=== PATIENT | female | born 1965 | race African-American/Black ===

== ENCOUNTER 2019-03-11 15:20 | Emergency (ER) | payer BC, MEDICARE, OTHER ==
[~2019-03-11] VITALS: Ht 160 cm; Wt 133.2 kg
[~2019-03-11 15:20] MED LIST: ALBUTEROL0.09 MG/A1 IH; ALDACTONE50 MG PO; ANOTHER BP MED; ATENOLOL25 MG PO; ATROVENTNS0.03% NS; CATAPRES-TTS 30.3 MG TD; CATAPRES0.3 MG PO; CLARITIN 1010 MG/TAB PO; COMBIVENT INH14.7 GM IH; COZAAR 50MG50 MG/TAB PO; DILAUDID 2MG TAB2 MG PO; DIOVAN; DIOVAN HCT PO; DIOVAN/HCT 12.51 TA1 PO; FUROSEMIDE; GLUCOPHAGE PO; GLUCOPHAGE500 MG/TAB PO; IPRATROPIUM BROM3 M1 IH; IRON; LASIX 40MG TABL40 MG PO; LORTAB 5/500 501 TAB PO; LORTAB 7.5/5001 TAB PO; MICRO-K 1010 MEQ PO; MICRO-K10 MEQ PO; NEXIUM40 MG PO; NORCO 325 MG-51 TAB PO; NORMODYNE200 MG PO; NORVASC 10MG10 MG PO; NORVASC10 MG PO; PREDNISONE10 MG PO; PREDNISONE20 MG PO; PRIL40 PO; PROAIR HFA0.09 MG/AC IH; RT ADVAIR 228 DISKUS IH; RT ADVAIR 528 DISKUS IH; RT SPIRIVA18 MCG IH; SINGULAIR 110 MG/TAB PO; TENORMIN100 MG PO; TESSALON PERLE200 MG PO; TRANDATE 200MG200 MG PO; TUSSIN; ULTRAM 50MG TAB50 MG PO; ULTRAM50 MG PO; VENTOLIN0.09 MG IH; ZITHROMAX TRI-500 MG PO
[2019-03-11 15:33] VITALS: BP 141/93; TEMP 97.6
[2019-03-11] MEDS ORDERED: FLEXERIL 1010 MG/TAB PO (15:58)
[2019-03-11] MEDS ORDERED: PREDNISONE20 MG PO (15:58)
[2019-03-11] MEDS ORDERED: LIPITOR 40MG TA40 MG PO (16:22)
[2019-03-11] MEDS ORDERED: HCTZ 25MG TAB25 MG PO (16:23)
[2019-03-11] MEDS ORDERED: LASIX 20MG TABL20 MG PO (16:24)
[2019-03-11] MEDS ORDERED: NORVASC 10MG10 MG PO (16:26)
[2019-03-11] MEDS ORDERED: APRESOLINE 25MG25 MG PO (16:26)
[2019-03-11] MEDS ORDERED: MULTI VITAMINS1 TAB PO (16:27)
[2019-03-11 16:30] VITALS: PULSE 69
== END 2019-03-11 16:42 | disposition home or self-care (01) ==
LOC: COL.ER 15:20
DX: M54.5 Low back pain (principal); J45.909 Unspecified asthma, uncomplicated; I10 Essential (primary) hypertension; Z90.710 Acquired absence of both cervix and uterus; Z98.84 Bariatric surgery status; Z79.51 Long term (current) use of inhaled steroids
CPT/HCPCS: J7512

== ENCOUNTER → 2019-03-16 | Outpatient (CLI) | payer BC, MEDICARE ==
[~2019-03-16] MED LIST changes: +APRESOLINE 25MG25 MG PO; +FLEXERIL 1010 MG/TAB PO; +HCTZ 25MG TAB25 MG PO; +LASIX 20MG TABL20 MG PO; +LIPITOR 40MG TA40 MG PO; +MULTI VITAMINS1 TAB PO
== END ==
LOC: COL.RAD 08:28
DX: N18.3 Chronic kidney disease, stage 3 (moderate) (principal); R10.9 Unspecified abdominal pain

== ENCOUNTER 2019-07-21 13:44 | Outpatient (RCR) | payer OTHER | END 2019-10-12 | disposition home or self-care (01) | LOC: WSOH | DX: S29.012A Strain of muscle and tendon of back wall of thorax, initial encounter (principal); I10 Essential (primary) hypertension; J45.909 Unspecified asthma, uncomplicated; M75.52 Bursitis of left shoulder; Z98.84 Bariatric surgery status; Z90.710 Acquired absence of both cervix and uterus; Y99.0 Civilian activity done for income or pay ==

== ENCOUNTER → 2020-05-10 | Outpatient (CLI) | payer OTHER | LOC: MC.RAD 09:45 | DX: Z12.31 Encounter for screening mammogram for malignant neoplasm of breast (principal) ==

== ENCOUNTER 2021-09-15 18:06 | Inpatient (IN) | payer BC, MEDICARE ==
[~2021-09-15] VITALS: Ht 160 cm; Wt 137.8 kg
[2021-09-15] VITALS (78 sets, daily range): BP systolic 18–153; BP diastolic 68–77; PULSE 108; TEMP 99.1–99.7; O2SAT 92–99
[2021-09-15 19:35] LABS: GRAN # 3.5 K/mm3 (1.4-6.5); GRAN % 82.2 % (42.2-75.2); HEMOGLOBIN 11.4 g/dl (12.5-16.0); LYMPH # 0.5 K/mm3 (1.2-3.4); LYMPH % 10.9 % (20.0-51.0); MEAN CELL VOLUME 83 fl (80.0-100.0); MEAN CORPUSCULAR HEMOGLOBIN 27 pg (27.0-31.0); MEAN CORPUSCULAR HGB CONC 32 g/dl (33.0-37.0); MEAN PLATELET VOLUME 9.4 fl (7.4-10.4); MONO # 0.3 K/mm3 (0.1-0.6); MONO % 6.2 % (1.7-9.3); PLATELET COUNT 253 K/mm3 (130-400); RED BLOOD COUNT 4.29 M/mm3 (4.10-5.30); REDCELL DISTRIBUTION WIDTH-CV 14.6 % (11.5-14.5)
[2021-09-15 19:36] LABS: HEMATOCRIT 35.5 % (37.0-47.0)
[2021-09-15 19:48] LABS: ALBUMIN 3.4 gm/dL (3.5-5.0); BILIRUBIN,TOTAL 0.3 mg/dL (0.2-1.2); C-REACTIVE PROTEIN 2.68 mg/dL (0.00-0.50); CALCIUM 8.5 mg/dL (8.4-10.2); CREATININE, serum 3.21 mg/dL (0.57-1.11); POTASSIUM 5.7 mmol/L (3.5-4.5); TOTAL PROTEIN 7.8 gm/dL (6.2-8.1)
--- NOTE | 2021-09-15 20:58 | NUR ---
Received report from YAMILET Radford RN.
--- NOTE | 2021-09-15 21:15 | NUR ---
Patient arrives to ICU room 1 via ED stretcher. Patient is alert and oriented and is able to ambulate independently to toilet and then to bed. Patient arrives receiving 10L oxygen via oxymask satting 95%. Patient becomes tachypneic and short of breath with activity but quickly recovers with rest. Initial BP of 180/77, and 165/85 at 15 minute recheck. Oral temperature of 99.7 orally. She arrives with one 20G peripheral IV to the [facility] that is saline locked. She denies any pain or discomfort. States she has a dry, hacking cough. Holly, hospitalist, aware of patient's arrival.
[2021-09-15] MEDS ORDERED: FARXIGA10 PO (21:55)
--- NOTE | 2021-09-15 22:00 | NUR ---
Patient's belongings include streeth clothes and shoes; a cellphone and radio broadcaster; her purse and wallet with $3 smith; a single gold wedding band; and a pair of glasses. She denies having any dentures, partials, plates, or hearing aids. Denies using assistive devices to ambulate. Belongings at bedside per patient's request.
[2021-09-15 22:58] LABS: ARTERIAL BLD GAS O2 SATURATION 97.6 % (92-100); ARTERIAL BLD GAS TCO2 CT 16.5; ARTERIAL BLOOD GAS BASE EXCESS -7.9 (-2-2); ARTERIAL BLOOD GAS HCO3 15.7 meq/L (22-26)
[2021-09-15 23:35] LABS: COLLECTION METHOD CLEAN CATCH
[2021-09-15 23:41] LABS: PH 5 (5-8); SQUAMOUS EPITHELIAL 0-2 /hpf; URINE APPEARANCE Clear; URINE BACTERIA Rare /hpf; URINE BILIRUBIN Negative (NEGATIVE); URINE BLOOD Negative (NEGATIVE); URINE COLOR Yellow; URINE GLUCOSE 2+ (NEGATIVE); URINE KETONE Negative (NEGATIVE); URINE LEUKOCYTE ESTERASE Trace (NEGATIVE); URINE NITRATE Negative (NEGATIVE); URINE PROTEIN(semi-quant) 1+ (NEGATIVE); URINE RBC 0-2 /hpf; URINE UROBILINOGEN Negative (NEGATIVE)
[2021-09-16] VITALS (720 sets, daily range): BP systolic 137–155; BP diastolic 68–82; PULSE 68–76; TEMP 97.5–99; O2SAT 83–99
[2021-09-16 03:24] LABS: GRAN # 2.9 K/mm3 (1.4-6.5); GRAN % 84.9 % (42.2-75.2); HEMOGLOBIN 10.6 g/dl (12.5-16.0); LYMPH # 0.4 K/mm3 (1.2-3.4); LYMPH % 11.6 % (20.0-51.0); MEAN CELL VOLUME 83 fl (80.0-100.0); MEAN CORPUSCULAR HEMOGLOBIN 27 pg (27.0-31.0); MEAN CORPUSCULAR HGB CONC 32 g/dl (33.0-37.0); MEAN PLATELET VOLUME 9.8 fl (7.4-10.4); MONO # 0.1 K/mm3 (0.1-0.6); MONO % 2.9 % (1.7-9.3); PLATELET COUNT 241 K/mm3 (130-400); REDCELL DISTRIBUTION WIDTH-CV 14.5 % (11.5-14.5)
[2021-09-16 03:25] LABS: HEMATOCRIT 33.2 % (37.0-47.0)
[2021-09-16 03:31] LABS: INR 1.2 (0.8-3.0); PROTHROMBIN TIME 12.8 SECONDS (9.7-12.8)
[2021-09-16 03:46] LABS: CALCIUM 8.9 mg/dL (8.4-10.2); CREATININE, serum 2.89 mg/dL (0.57-1.11); POTASSIUM 5.1 mmol/L (3.5-4.5)
--- NOTE | 2021-09-16 07:00 | NUR ---
PT RESTING IN BED. VSS. PT HAS NS RUNNING. WILL CONTINUE TO MONTIOR.
--- NOTE | 2021-09-16 08:38 | NUR ---
PT DOWN TO MRI/MRA AT THIS TIME
--- NOTE | 2021-09-16 08:48 | NUR ---
ANGEL KENNEDY WITH NOTIFIED OF CONSULT. NOTIFIED OF CONSULT.
--- NOTE | 2021-09-16 10:59 | NUR ---
head screen worker called patient due to Covid + status. Patient reports that she lives in a duplex in [place]. States her and her live on one side and her mother and grandchildren live in the other unit. Patient reports that her mother is caring for the children currently. Patient reports that she is fully independent with her ADL's and she does not use any assisting devices to help her ambulate and no O2 needs. PCP is Dr. Augustin at [facility] and she utilizes [facility] in [place] for perscriptions with no cost difficulty.Patient reports that she does have a DPOA-HC established and that [facility] has a copy of it. Contact made with the SW at [facility] and she is going to fax a copy.
--- NOTE | 2021-09-16 19:14 | NUR ---
Received report from TRAVIS Pedroza.
[2021-09-17] VITALS (705 sets, daily range): BP systolic 130–146; BP diastolic 65–72; PULSE 67–73; TEMP 96.9–98; O2SAT 81–98
[2021-09-17 06:29] LABS: HEMATOCRIT 35.4 % (37.0-47.0); HEMOGLOBIN 11.2 g/dl (12.5-16.0); MEAN CELL VOLUME 83 fl (80.0-100.0); MEAN CORPUSCULAR HEMOGLOBIN 26 pg (27.0-31.0); MEAN CORPUSCULAR HGB CONC 32 g/dl (33.0-37.0); MEAN PLATELET VOLUME 9.3 fl (7.4-10.4); PLATELET COUNT 339 K/mm3 (130-400); RED BLOOD COUNT 4.27 M/mm3 (4.10-5.30); REDCELL DISTRIBUTION WIDTH-CV 14.7 % (11.5-14.5)
[2021-09-17 06:43] LABS: C-REACTIVE PROTEIN 2.82 mg/dL (0.00-0.50); CALCIUM 9.5 mg/dL (8.4-10.2); CREATININE, serum 2.65 mg/dL (0.57-1.11); POTASSIUM 4.8 mmol/L (3.5-4.5)
--- NOTE | 2021-09-17 10:14 | NUR ---
REPORT RECEIVED FROM TRAVIS PERRIN; PATIENT RESTING COMFORTABLY IN BED AND VITALS ARE ALL WITHIN NORMAL RANGE AT THIS TIME.
--- NOTE | 2021-09-17 10:18 | NUR ---
PATIENT IS A LITTLE ANXIOUS AND NEEDS FREQUENT REASSURANCE TO HER WELL-BEING. VERY ACTIVE PARTICIPANT IN CARE AND IS VERY INTERESTED IN LEARNING ABOUT TESTS, RESULTS AND TREATMENTS.
[2021-09-18] VITALS (663 sets, daily range): BP systolic 132–148; BP diastolic 65–75; PULSE 64–73; TEMP 97.1–98; O2SAT 78–96
[2021-09-18 06:13] LABS: CALCIUM 9.5 mg/dL (8.4-10.2); CREATININE, serum 2.85 mg/dL (0.57-1.11)
--- NOTE | 2021-09-18 09:14 | NUR ---
RECEIVED REPORT FROM TRAVIS CHADWICK. OVERNIGHT PATIENT DID NOT SLEEP WELL AND WAS EXPERIENCING A LOT OF ANXIETY; CURRENTLY SHE IS RESTING IN BED ON HER PHONE.
--- NOTE | 2021-09-18 16:45 | NUR ---
Copy of the patient's DPOA-HC received and placed in the patient's chart.
[2021-09-19] VITALS (655 sets, daily range): BP systolic 141–159; BP diastolic 67–83; PULSE 65–86; TEMP 97.5–98.3; O2SAT 75–96
[2021-09-19 04:46] LABS: HEMOGLOBIN 10.9 g/dl (12.5-16.0); MEAN CELL VOLUME 82 fl (80.0-100.0); MEAN CORPUSCULAR HEMOGLOBIN 27 pg (27.0-31.0); MEAN CORPUSCULAR HGB CONC 33 g/dl (33.0-37.0); MEAN PLATELET VOLUME 8.8 fl (7.4-10.4); PLATELET COUNT 378 K/mm3 (130-400); RED BLOOD COUNT 4.08 M/mm3 (4.10-5.30); REDCELL DISTRIBUTION WIDTH-CV 14.8 % (11.5-14.5)
[2021-09-19 04:59] LABS: C-REACTIVE PROTEIN 2.37 mg/dL (0.00-0.50); CALCIUM 9.5 mg/dL (8.4-10.2); CREATININE, serum 2.94 mg/dL (0.57-1.11); POTASSIUM 4.8 mmol/L (3.5-4.5)
[2021-09-19 05:08] LABS: HEMATOCRIT 33.3 % (37.0-47.0)
--- NOTE | 2021-09-19 10:11 | NUR ---
ON MORNING ASSESSMENT THE PT WAS SITTING ON THE EDGE OF THE BED AND APPEARED TO BE IN NO ACUTE DISTRESS. OXYGEN DEMAND HAS INCREASED.
--- NOTE | 2021-09-19 11:37 | NUR ---
WENT DOWN TO CT VIA WHEEL CHAIR. PT ON 15 LPM NRP FOR TRANSPORT. PT TOLERATED CT WELL.
[2021-09-19 12:21] LABS: ARTERIAL BLD GAS O2 SATURATION 82.4 % (92-100); ARTERIAL BLOOD GAS BASE EXCESS -8.2 (-2-2); ARTERIAL BLOOD GAS HCO3 16.1 meq/L (22-26); ARTERIAL BLOOD GAS PCO2 29.5 mmHg (35-45); ARTERIAL BLOOD GAS PO2 50.1 mmHg (80-100); ARTERIAL BLOOD GAS pH 7.35 (7.35-7.45)
--- NOTE | 2021-09-19 13:00 | NUR ---
PT PALCED ON AIRVO BY RT JOVANNI AT 60 LPM 75%. PT TOLERATING IT WELL.
--- NOTE | 2021-09-19 14:10 | NUR ---
Attempt made to contact the patient's and was unsuccessful.
--- NOTE | 2021-09-19 14:32 | NUR ---
Phone called received from the patient's . Provided brief update and offered to have the patient's RN call and give a clinical update. States that he brought his mother in whome was admitted to the covid unit and that he is at home taking care of the children.
--- NOTE | 2021-09-19 18:00 | NUR ---
PATIENT STATES THAT SHE IS HAVING SOME ISSUES WITH THE AIRVO, THAT IT MAKES HER FEEL THOUGH SHE CANT BREATHE, OR EAT. WILL CONSULT WITH RT FOR PT EDUCATION ON AIRVO AND WAYS TO BECOME MORE COMFORTABLE ON IT.
[2021-09-20] VITALS (658 sets, daily range): BP systolic 134–160; BP diastolic 65–89; PULSE 73–88; TEMP 97.6–97.9; O2SAT 78–100
[2021-09-20 06:13] LABS: HEMATOCRIT 35.3 % (37.0-47.0); HEMOGLOBIN 11.6 g/dl (12.5-16.0); MEAN CELL VOLUME 81 fl (80.0-100.0); MEAN CORPUSCULAR HEMOGLOBIN 27 pg (27.0-31.0); MEAN CORPUSCULAR HGB CONC 33 g/dl (33.0-37.0); MEAN PLATELET VOLUME 8.8 fl (7.4-10.4); PLATELET COUNT 411 K/mm3 (130-400); RED BLOOD COUNT 4.35 M/mm3 (4.10-5.30); REDCELL DISTRIBUTION WIDTH-CV 14.8 % (11.5-14.5)
[2021-09-20 06:23] LABS: ARTERIAL BLD GAS O2 SATURATION 90.5 % (92-100); ARTERIAL BLD GAS TCO2 CT 18.5; ARTERIAL BLOOD GAS BASE EXCESS -6.5 (-2-2); ARTERIAL BLOOD GAS HCO3 17.5 meq/L (22-26); ARTERIAL BLOOD GAS PCO2 30.7 mmHg (35-45); ARTERIAL BLOOD GAS PO2 60.3 mmHg (80-100); ARTERIAL BLOOD GAS pH 7.38 (7.35-7.45)
[2021-09-20 06:32] LABS: CALCIUM 9.9 mg/dL (8.4-10.2); CREATININE, serum 2.84 mg/dL (0.57-1.11); POTASSIUM 4.9 mmol/L (3.5-4.5)
--- NOTE | 2021-09-20 12:58 | NUR ---
Assisted patient to self-prone. o2 up to 95% within 5 minutes of proning. Will continue to monitor.
--- NOTE | 2021-09-20 17:00 | NUR ---
Assisted to un-prone patient. Requested to go back to recliner to eat dinner. Denies any concerns or complaints at this time. Call light left within reach.
--- NOTE | 2021-09-20 20:00 | NUR ---
PT SITTING UP IN CHAIR, IVPB CURRENTLY INFUSING TO R A/C PIV. FLUSHED R HAND PIV WELL, FLUSHES WELL. PT REPORTS NO PAIN, DISCUSSED PRONING TODAY AND WILL REPEAT OVER NIGHT TOLERATED. PT DOES HAVE COUGH, ABLE TO EXPECTORATE SOME CLEAR SPUTUM. WILL CONTINUE TO MONITOR.
[2021-09-21] VITALS (695 sets, daily range): BP systolic 139–170; BP diastolic 70–85; PULSE 75–89; TEMP 97.4–97.8; O2SAT 64–100
--- NOTE | 2021-09-21 00:46 | NUR ---
PT SELF PRONED AT 0015, ECG LEADS PLACED ON BACK. PULSE OXIMETRY HOLDING STEADILY AT 99% IN THIS POSITION.
[2021-09-21 06:15] LABS: BASO % 0.2 % (0.0-2.0); GRAN # 6.6 K/mm3 (1.4-6.5); GRAN % 71.5 % (42.2-75.2); HEMOGLOBIN 11.2 g/dl (12.5-16.0); LYMPH # 1.3 K/mm3 (1.2-3.4); MEAN CELL VOLUME 82 fl (80.0-100.0); MEAN CORPUSCULAR HEMOGLOBIN 27 pg (27.0-31.0); MEAN CORPUSCULAR HGB CONC 33 g/dl (33.0-37.0); MEAN PLATELET VOLUME 9.4 fl (7.4-10.4); MONO % 10.9 % (1.7-9.3); PLATELET COUNT 434 K/mm3 (130-400); RED BLOOD COUNT 4.22 M/mm3 (4.10-5.30); REDCELL DISTRIBUTION WIDTH-CV 14.9 % (11.5-14.5)
[2021-09-21 06:33] LABS: BILIRUBIN,TOTAL 0.4 mg/dL (0.2-1.2); C-REACTIVE PROTEIN 1.28 mg/dL (0.00-0.50); CALCIUM 9.8 mg/dL (8.4-10.2); CREATININE, serum 2.82 mg/dL (0.57-1.11); TOTAL PROTEIN 6.4 gm/dL (6.2-8.1)
[2021-09-21 06:43] LABS: HEMATOCRIT 34.4 % (37.0-47.0)
--- NOTE | 2021-09-21 09:15 | NUR ---
Alert and oriented per usual. Reported having a "pretty good night". Assisted up to the commode and into recliner; tolerated well. Breakfast ordered and call light left within reach.
--- NOTE | 2021-09-21 16:45 | NUR ---
Patient requesting to self-prone. Assisted and tolerated well. Call light left within reach.
[2021-09-22] VITALS (713 sets, daily range): BP systolic 143–168; BP diastolic 73–93; PULSE 64–83; TEMP 97.3–97.8; O2SAT 81–100
[2021-09-22 04:15] LABS: HEMOGLOBIN 11.6 g/dl (12.5-16.0); MEAN CELL VOLUME 81 fl (80.0-100.0); MEAN CORPUSCULAR HEMOGLOBIN 27 pg (27.0-31.0); MEAN CORPUSCULAR HGB CONC 33 g/dl (33.0-37.0); MEAN PLATELET VOLUME 9.1 fl (7.4-10.4); PLATELET COUNT 401 K/mm3 (130-400); RED BLOOD COUNT 4.36 M/mm3 (4.10-5.30)
[2021-09-22 04:21] LABS: HEMATOCRIT 35.3 % (37.0-47.0)
[2021-09-22 04:56] LABS: ALBUMIN 3.3 gm/dL (3.5-5.0); BILIRUBIN,TOTAL 0.5 mg/dL (0.2-1.2); C-REACTIVE PROTEIN 0.7 mg/dL (0.00-0.50); CALCIUM 9.8 mg/dL (8.4-10.2); CREATININE, serum 2.83 mg/dL (0.57-1.11)
[2021-09-22 05:39] LABS: BAND 10 % (0-10); LYMPHOCYTE 26 % (20.0-51.0); NEUTROPHILS 61 % (42.0-75.2); PLATELET ESTIMATE NORMAL (NORMAL)
[2021-09-22 06:25] LABS: CREATININE, serum 2.83 mg/dL (0.57-1.11)
--- NOTE | 2021-09-22 09:00 | NUR ---
Assisted up to commode to void and then to chair and breakfast ordered. 02 stable on current airvo settings. Call light left within reach.
--- NOTE | 2021-09-22 09:00 | NUR ---
Discussed possible placement of PICC line today, and refused offer for placement. Theo has no IV infusions ordered. Discussed with Nephrology and they would also prefer a PICC line not be placed. Therefore there are no plans to place a PICC at this time.
--- NOTE | 2021-09-22 10:01 | NUR ---
Notified Cruz ALBARRAN of PICC placement order. awaiting agreeance from nephrology before visiting with patient.
--- NOTE | 2021-09-22 11:50 | NUR ---
Watching an aerobics video on cell phone. Asked this nurse if it would be ok to try to do some exercises along with the video for therapy. Responded that as long as she tolerates the exercise without any pain or distress, than moving around and doing some simple exercise would be beneficial to her recovery process.
[2021-09-23] VITALS (760 sets, daily range): BP systolic 105–152; BP diastolic 81–90; PULSE 68–91; TEMP 97.5–98.1; O2SAT 75–100
[2021-09-23 05:48] LABS: HEMOGLOBIN 11.2 g/dl (12.5-16.0); MEAN CELL VOLUME 84 fl (80.0-100.0); MEAN CORPUSCULAR HEMOGLOBIN 26 pg (27.0-31.0); MEAN CORPUSCULAR HGB CONC 31 g/dl (33.0-37.0); PLATELET COUNT 330 K/mm3 (130-400); RED BLOOD COUNT 4.26 M/mm3 (4.10-5.30); REDCELL DISTRIBUTION WIDTH-CV 15.1 % (11.5-14.5)
[2021-09-23 05:52] LABS: HEMATOCRIT 35.8 % (37.0-47.0)
--- NOTE | 2021-09-23 06:00 | NUR ---
PT A/O X4. RESTED WELL OVERNIGHT WHEN NOT DISTURBED. PT TOLERATED SELF PRONING WELL. VERBALIZES FEAR OF "NOT MAKING IT." THIS RN DISCUSSED HOW WELL PT TOLERATING AIRVO, ACITIVTY, AND SELF PRONING PT IS MOTIVATED TO IMPOROVE. ENCOURAGED PT TO CONTINUE THESE ACTIVITES AND PT VERBALIZED UNDERSTANDING AND ANXIETY IMPROVED. RIGHT AC IV REMOVED IT WAS PARTIALLY OUT AND KINKED. PT RESTING IN BED WITH EYES CLOSED. CALL LIGHT WITHIN REACH.
[2021-09-23 06:09] LABS: ALBUMIN 3.2 gm/dL (3.5-5.0); BILIRUBIN,TOTAL 0.6 mg/dL (0.2-1.2); C-REACTIVE PROTEIN 0.3 mg/dL (0.00-0.50); CALCIUM 9.4 mg/dL (8.4-10.2); CREATININE, serum 2.55 mg/dL (0.57-1.11); POTASSIUM 4.8 mmol/L (3.5-4.5); TOTAL PROTEIN 6.7 gm/dL (6.2-8.1)
[2021-09-23 06:32] LABS: BAND 1 % (0-10); LYMPHOCYTE 18 % (20.0-51.0); METAMYELOCYTE 2 % (0-0); NEUTROPHILS 77 % (42.0-75.2); PLATELET ESTIMATE NORMAL (NORMAL)
--- NOTE | 2021-09-23 10:07 | NUR ---
REPORT RECEIVED FROM TRAVIS SANCHEZ. PATIENT CURRENTLY RESTING IN BED AND HAD AN UNEVENTFUL NIGHT LAST NIGHT.
--- NOTE | 2021-09-23 14:26 | NUR ---
Veterinary Assistant collaborated with Hospitalist about [facility] as patient continues to require 60 liters of oxygen. Hospitalist advised he feels this is appropriate and will discuss it with patient. SW contacted David at [facility] and gave referral. David advised she clinically meets criteria and he can submit to patient's insurance. SW contacted patient to discuss [facility]. Patient states she would prefer not to transfer and would like to stay here. TUYET will update Hospitalist.
--- NOTE | 2021-09-23 17:27 | NUR ---
PATIENT ASKED ABOUT GOING TO [facility], THE FIRST SHE HEARD OF IT WAS THIS AFTERNOON WHEN JENNA CALLED TO DISCUSS IT. PER HER DISCUSSION WITH DR. LOPEZ, IT WAS RECOMMENDED SHE GO TO [facility] SHE IS STILL ON 60 LPM AND HAS BEEN HERE FOR 9 DAYS. PATIENT DOES NOT WANT TO GO TO [facility]; THIS NURSE CALLED JENNA TO DISCUSS AND RELAY PATIENTS CONCERNS. JENNA HEARD THE SAME THING FROM THE PATIENT; WE WILL SEE HOW SHE DOES AFTER MOVING TO THE MEDICAL FLOOR AND THE MATTER WILL CONTINUE TO BE DISCUSSED WITH PATIENT.
--- NOTE | 2021-09-23 20:05 | NUR ---
PATIENT STRESSED ABOUT TRANSFER TO [facility]/ WANTS TO STAY IN TOWN FOR HER MOM WHO ALSO ADMITTED FOR COVID/ ALSO WANTS TO DO THE BEST FOR OWN PERSONAL ILLNESS.
[2021-09-24] VITALS (628 sets, daily range): BP systolic 112–146; BP diastolic 76–100; PULSE 75–91; TEMP 97.6–98.1; O2SAT 65–100
[2021-09-24 04:39] LABS: BASO % 0.2 % (0.0-2.0); EOS % 0.1 % (0-4.0); GRAN # 11.1 K/mm3 (1.4-6.5); GRAN % 78.4 % (42.2-75.2); HEMATOCRIT 38.2 % (37.0-47.0); HEMOGLOBIN 12.3 g/dl (12.5-16.0); MEAN CELL VOLUME 81 fl (80.0-100.0); MEAN CORPUSCULAR HEMOGLOBIN 26 pg (27.0-31.0); MEAN CORPUSCULAR HGB CONC 32 g/dl (33.0-37.0); MEAN PLATELET VOLUME 8.9 fl (7.4-10.4); MONO # 1.4 K/mm3 (0.1-0.6); MONO % 9.8 % (1.7-9.3); PLATELET COUNT 323 K/mm3 (130-400); RED BLOOD COUNT 4.71 M/mm3 (4.10-5.30)
[2021-09-24 05:05] LABS: ALBUMIN 3.3 gm/dL (3.5-5.0); CALCIUM 9.8 mg/dL (8.4-10.2); CREATININE, serum 2.56 mg/dL (0.57-1.11); MAGNESIUM 2.2 mg/dL (1.6-2.6); POTASSIUM 5.1 mmol/L (3.5-4.5)
--- NOTE | 2021-09-24 08:00 | NUR ---
Alert and oriented and sitting in recliner. Assisted up to use the commode. Tolerates activity well. Breakfast tray provided. Call light within reach.
--- NOTE | 2021-09-24 08:30 | NUR ---
Alert and oriented and in no distress. Assisted up to use the commode. Call light left within reach; will continue to monitor.
--- NOTE | 2021-09-24 12:45 | NUR ---
Ingredient Mixer was contacted by David at [facility] who advised they have accepted patient and her insurance has approved. TUYET updated David that patient was not agreeable to go at this time. TUYET updated Hospitalist during rounds.
--- NOTE | 2021-09-24 14:07 | NUR ---
Updated Dr. Gooden on patient status; all questions and concerns addressed at this time.
[2021-09-25] VITALS (220 sets, daily range): BP systolic 127–155; BP diastolic 79–108; PULSE 83–103; TEMP 97.1–99; O2SAT 83–100
[2021-09-25 05:50] LABS: HEMATOCRIT 39.4 % (37.0-47.0); HEMOGLOBIN 12.5 g/dl (12.5-16.0); MEAN CELL VOLUME 84 fl (80.0-100.0); MEAN CORPUSCULAR HEMOGLOBIN 27 pg (27.0-31.0); MEAN CORPUSCULAR HGB CONC 32 g/dl (33.0-37.0); MEAN PLATELET VOLUME 9.1 fl (7.4-10.4); PLATELET COUNT 315 K/mm3 (130-400); REDCELL DISTRIBUTION WIDTH-CV 14.7 % (11.5-14.5)
--- NOTE | 2021-09-25 06:12 | NUR ---
RESTED FAIR OVER NIGHT PER PT. TOLERATING AIRVO. PRONING TO SLEEP. PT SEEMS TO BE IN BETTER SPIRITS. CURRENTLY SITTING ON EDGE OF BED DOING BED BATH. CALL LIGHT WITHIN REACH.
[2021-09-25 06:23] LABS: ALBUMIN 3.3 gm/dL (3.5-5.0); BILIRUBIN,TOTAL 0.7 mg/dL (0.2-1.2); C-REACTIVE PROTEIN 0.13 mg/dL (0.00-0.50); CALCIUM 9.3 mg/dL (8.4-10.2); CREATININE, serum 2.57 mg/dL (0.57-1.11); PHOSPHOROUS 4.6 mg/dL (2.3-4.7); POTASSIUM 4.6 mmol/L (3.5-4.5); TOTAL PROTEIN 6.9 gm/dL (6.2-8.1)
[2021-09-25 06:45] LABS: BAND 7 % (0-10); LYMPHOCYTE 6 % (20.0-51.0); METAMYELOCYTE 1 % (0-0); NEUTROPHILS 83 % (42.0-75.2)
[2021-09-25 06:48] LABS: ANISOCYTOSIS 1+; PLATELET ESTIMATE NORMAL (NORMAL)
--- NOTE | 2021-09-25 07:00 | NUR ---
PT RESTING IN THE CHAIR. VSS. WILL CONTINUE TO MONTIOR.
--- NOTE | 2021-09-25 13:40 | NUR ---
PT COMPLAINING OF DRY COUGH AND SATS INTERMITTENTLY DOWN TO 84% NOTIFIED. ORDER FOR COUGH MEDS RECEIVED. DISCUSSED WITH PT ABOUT PLACING ON BIPAP, AND PATIENT REFUSED. PT EDUCATED ON NEED FOR HIGH OXYGEN, BUT PT STATED "I WORE IT BEFORE AND I COULDNT BREATH, IM NOT WEARING IT AGAIN". PRN MEDS GIVEN. WILL CONITNUE TO MONITOR.
--- NOTE | 2021-09-25 14:23 | NUR ---
PT UNABLE TO MAINTAIN SATS. CALLED. PT PREVIOUSLY GIVEN ANXIETY AND COUGH MEDS. ORDERS RECEIVED FOR PRECEDEX AND BIPAP. PT THROUGHLY EDUCATED ON NEED FOR BIPAP AND IV MEDICATION. RT PLACE PT ON BIPAP. CALLED AND MESSAGE LEFT FOR UPDATE. WILL CONTINUE TO MONITOR.
--- NOTE | 2021-09-25 14:33 | NUR ---
NOTIFIED OF PT BACK ON BIPAP AND ON PRECEDEX DRIP. ATTEMPTING TO PLACE A NEW IV AND IF UNABLE WILL NEED A CENTRAL LINE. PT SATING 91 ON BIPAP.
--- NOTE | 2021-09-25 16:00 | NUR ---
PT STARTED ON PRECEDEX PER . PT VERY ANXIOUS AND TACHYPNIC. PT PREVIOUSLY PLACED ON BIPAP.
--- NOTE | 2021-09-25 16:05 | NUR ---
CALLED AND INFORMED CHEST XRAY PREFORMED. STATES CENTRAL LINE OK TO USE.
--- NOTE | 2021-09-25 19:00 | NUR ---
Received report from TRAVIS Pedroza.
--- NOTE | 2021-09-25 22:30 | NUR ---
This RN at bedside administering evening medications when patient experienced an episode of aggressive coughing. Patient did not appear to choke or aspirate on medications; she states she is unable to catch her breath between coughs. Patient's HR noted to be irregular and tachycardic, with rates up to 150s. HR remained elevated and irregular after coughing subsided with patient resting quietly in bed. Tania notified; received orders for STAT EKG. EKG showed Afib RVR. Tania notified. Received orders to initiate Heparin and Cardizem drips.
[2021-09-26] VITALS (9 sets, daily range): BP systolic 74–136; BP diastolic 24–99; PULSE 95–145; TEMP 97.1–100.1
[2021-09-26 00:52] LABS: INR 1.2 (0.8-3.0); PARTIAL THROMBOPLASTIN TIME 25.8 SECONDS (26.0-37.0); PROTHROMBIN TIME 13.2 SECONDS (9.7-12.8)
--- NOTE | 2021-09-26 02:30 | NUR ---
Patient's oxygen saturation has steadily declined throughout NOC. At 1900, patient's sats 90-93% on 100% FiO2 18/12. At this time, patient is 86-88% on the same settings. She is resting quietly in bed with eyes closed. Pulse oximeter is exchanged and warm blanks are applied to patient's extremities with no change in oximeter reading. RTAnushka, and hospitalist, Tania, notified. Tania consulted [facility] physician Dr. Roblero. Received orders to change BiPap pressure settings to 20/14. RTAnushka, notified.
[2021-09-26 02:54] LABS: ARTERIAL BLD GAS O2 SATURATION 87.5 % (92-100); ARTERIAL BLD GAS TCO2 CT 21.1; ARTERIAL BLOOD GAS BASE EXCESS -3.7 (-2-2); ARTERIAL BLOOD GAS HCO3 20.1 meq/L (22-26); ARTERIAL BLOOD GAS PCO2 32.4 mmHg (35-45); ARTERIAL BLOOD GAS PO2 55.9 mmHg (80-100); ARTERIAL BLOOD GAS pH 7.41 (7.35-7.45)
[2021-09-26 07:04] LABS: HEMATOCRIT 37.3 % (37.0-47.0); HEMOGLOBIN 12.2 g/dl (12.5-16.0); MEAN CELL VOLUME 81 fl (80.0-100.0); MEAN CORPUSCULAR HEMOGLOBIN 27 pg (27.0-31.0); MEAN CORPUSCULAR HGB CONC 33 g/dl (33.0-37.0); MEAN PLATELET VOLUME 9.5 fl (7.4-10.4); PLATELET COUNT 252 K/mm3 (130-400); RED BLOOD COUNT 4.59 M/mm3 (4.10-5.30); REDCELL DISTRIBUTION WIDTH-CV 14.9 % (11.5-14.5)
[2021-09-26 07:20] LABS: ALBUMIN 2.9 gm/dL (3.5-5.0); BILIRUBIN,TOTAL 0.6 mg/dL (0.2-1.2); CREATININE, serum 3.12 mg/dL (0.57-1.11); MAGNESIUM 2.1 mg/dL (1.6-2.6); PHOSPHOROUS 6.9 mg/dL (2.3-4.7); POTASSIUM 5.3 mmol/L (3.5-4.5); TOTAL PROTEIN 6.2 gm/dL (6.2-8.1)
[2021-09-26 07:21] LABS: C-REACTIVE PROTEIN 0.86 mg/dL (0.00-0.50)
--- NOTE | 2021-09-26 08:00 | NUR ---
THIS NURSE IS BEDSIDE AND TALKED WITH PT ABOUT HER INCREASING OXYGEN NEED AND ASKED IF IT OK TO INTUBATE. THE PATIENT STATED YES AND CONSENT WAS SIGNED FOR INTUBATION AND ARTERIAL LINE PALCEMENT.
[2021-09-26 08:33] LABS: BAND 3 % (0-10); LYMPHOCYTE 5 % (20.0-51.0); NEUTROPHILS 91 % (42.0-75.2); NUCLEATED RED BLOOD CELL 1 (0-6); PLATELET ESTIMATE NORMAL (NORMAL)
[2021-09-26 08:34] LABS: MICROCYTOSIS 1+; OVALOCYTES 1+
[2021-09-26 08:35] LABS: SCHISTOCYTES 1+
[2021-09-26 10:44] LABS: PARTIAL THROMBOPLASTIN TIME > 400.0 SECONDS (26.0-37.0)
--- NOTE | 2021-09-26 12:00 | NUR ---
AT THIS TIME THE CRUSHER WET GROUND MICA IS IN ROOM, HE ADMINISTERED 20MG OF VECURONIUM, 40 MG OF ETOMIDATE, 100 MCG OF LIDOCAINE, 100 MG OF SUCCINYLCHOLINE. THE PATIENT WAS THEN SEDATED AND PREOXYGENATED. THE CRUSHER [employer] GR[employer] MICA HAS PROBLEMS INSERTING THE ETT, AND HAD TO TRY 3 TIMES. DURING THE MULTIPLE ATTEMPTS AT INTUBATION THE PATIENTS SATS WOULD FALL INTO THE MID 70S. THE PATIENT WAS SUCCESSFULLY INTUBATED AT 1214 BUT HAD COPIOUS AMOUNTS OF BRIGHT RED BLOOD COMING FROM THE THROAT AND NEEDED SUCTIONING. THE ETT WAS 7.5, 24 CM AT THE TEETH AND AFTER XRAY, THE ETT WAS PULLED BACK 2 CM AND NOW IS 22 AT THE TEETH. OG WAS INSERTED AND CHECK FOR GASTRIC CONTENTS AND COULD POSITIVLY HEAR AIR WHEN PUSHED INTO THE OG TUBE. OG 57 CM AT THE TEETH.
--- NOTE | 2021-09-26 12:00 | NUR ---
MISS RIVERO IS VERY UNSTABLE IN BLOOD PRESSURE AND NEEDS CONSTANT MONITORING AND TITRATION OF LEVOPHED AND PROPOFOL FOR BLOOD PRESSURE CONTROL.
[2021-09-26 14:30] LABS: PARTIAL THROMBOPLASTIN TIME 198.1 SECONDS (26.0-37.0)
[2021-09-26 15:18] LABS: ARTERIAL BLD GAS O2 SATURATION 70.6 % (92-100); ARTERIAL BLD GAS TCO2 CT 19.2; ARTERIAL BLOOD GAS BASE EXCESS -6.8 (-2-2); ARTERIAL BLOOD GAS HCO3 18.2 meq/L (22-26); ARTERIAL BLOOD GAS PCO2 34.6 mmHg (35-45); ARTERIAL BLOOD GAS pH 7.34 (7.35-7.45)
[2021-09-26 15:19] LABS: ARTERIAL BLOOD GAS PO2 42.5 mmHg (80-100)
[2021-09-26 16:45] LABS: HEMATOCRIT 39.9 % (37.0-47.0); HEMOGLOBIN 12.3 g/dl (12.5-16.0); MEAN CORPUSCULAR HEMOGLOBIN 27 pg (27.0-31.0); MEAN CORPUSCULAR HGB CONC 31 g/dl (33.0-37.0); MEAN PLATELET VOLUME 9.6 fl (7.4-10.4); PLATELET COUNT 291 K/mm3 (130-400); RED BLOOD COUNT 4.58 M/mm3 (4.10-5.30); REDCELL DISTRIBUTION WIDTH-CV 15.2 % (11.5-14.5)
[2021-09-26 16:50] LABS: MEAN CELL VOLUME 87 fl (80.0-100.0)
[2021-09-26 16:58] LABS: PARTIAL THROMBOPLASTIN TIME 55.7 SECONDS (26.0-37.0)
--- NOTE | 2021-09-26 17:00 | NUR ---
PATIENT IS TOO UNSTABLE AT THIS TIME FOR SEDATION VACATION.
--- NOTE | 2021-09-26 17:00 | NUR ---
PATIENTS FAMILY, INCLUDING THE DPOA , IS IN THE ICU. DR. SERRANO AND DR. LOPEZ ARE BOTH CONSULTING WITH THE FAMILY ABOUT THE POOR PROGNOSIS OF THE PT. THE FAMILY STATED THAT THEY WANT EVERYTHING TO BE DONE FOR THE PT AND TO CONTINUE WITH THE CURRENT CARE/.
[2021-09-26 17:05] LABS: ALBUMIN 2.8 gm/dL (3.5-5.0); BILIRUBIN,TOTAL 0.6 mg/dL (0.2-1.2); CALCIUM 8.4 mg/dL (8.4-10.2); CREATININE, serum 3.86 mg/dL (0.57-1.11); TOTAL PROTEIN 6.3 gm/dL (6.2-8.1)
[2021-09-26 17:07] LABS: ARTERIAL BLD GAS TCO2 CT 19.6; ARTERIAL BLOOD GAS BASE EXCESS -9.2 (-2-2); ARTERIAL BLOOD GAS HCO3 18.2 meq/L (22-26); ARTERIAL BLOOD GAS PCO2 45.3 mmHg (35-45); ARTERIAL BLOOD GAS PO2 66.9 mmHg (80-100); ARTERIAL BLOOD GAS pH 7.22 (7.35-7.45)
[2021-09-26 17:08] LABS: POTASSIUM 5.8 mmol/L (3.5-4.5)
[2021-09-26 17:12] LABS: TROPONIN-I 0.045 ng/mL (0.00-0.033)
[2021-09-26 17:18] LABS: BAND 11 % (0-10); HYPOCHROMIA 3+; LYMPHOCYTE 2 % (20.0-51.0); NEUTROPHILS 86 % (42.0-75.2); PLATELET ESTIMATE NORMAL (NORMAL)
--- NOTE | 2021-09-26 19:00 | NUR ---
Received report from TRAVIS Pickering.
--- NOTE | 2021-09-26 20:30 | NUR ---
Per report received from TRAVIS Pickering, patient's heparin on standby since approximately 0800 due to high HepXa. HepXa result at 1624 was 0.73, however, the drip was never restarted. This RN notified Holly hospitalist of the above. Received orders to restart heparin according to protocol[place] [address] units/hr (20mL/hr), no bolus necessary at this time. To recheck Xa six hours after restart.
--- NOTE | 2021-09-26 21:15 | NUR ---
Patient's levophed switched to double concentration, or 16mg/516mL. Drip titrated to adjust for increased concentration. See titration block charting. Verified rate and dose changes with pharmacy.
[2021-09-26 23:26] LABS: HEMATOCRIT 39.5 % (37.0-47.0); HEMOGLOBIN 12.4 g/dl (12.5-16.0)
[2021-09-27] VITALS (442 sets, daily range): BP systolic 84–145; BP diastolic 57–74; PULSE 84–112; TEMP 98.2–100.6; O2SAT 79–94
[2021-09-27 04:04] LABS: ARTERIAL BLD GAS O2 SATURATION 90.5 % (92-100); ARTERIAL BLD GAS TCO2 CT 17.4; ARTERIAL BLOOD GAS BASE EXCESS -10.8 (-2-2); ARTERIAL BLOOD GAS HCO3 16.1 meq/L (22-26); ARTERIAL BLOOD GAS PCO2 39.6 mmHg (35-45); ARTERIAL BLOOD GAS PO2 63.3 mmHg (80-100); ARTERIAL BLOOD GAS pH 7.23 (7.35-7.45)
[2021-09-27 05:12] LABS: HEMATOCRIT 39.1 % (37.0-47.0); HEMOGLOBIN 12.5 g/dl (12.5-16.0); MEAN CELL VOLUME 85 fl (80.0-100.0); MEAN CORPUSCULAR HEMOGLOBIN 27 pg (27.0-31.0); MEAN CORPUSCULAR HGB CONC 32 g/dl (33.0-37.0); MEAN PLATELET VOLUME 9.6 fl (7.4-10.4); PLATELET COUNT 273 K/mm3 (130-400); RED BLOOD COUNT 4.61 M/mm3 (4.10-5.30)
[2021-09-27 05:26] LABS: ALBUMIN 2.7 gm/dL (3.5-5.0); BILIRUBIN,TOTAL 0.3 mg/dL (0.2-1.2); CALCIUM 8.4 mg/dL (8.4-10.2); PHOSPHOROUS 8.2 mg/dL (2.3-4.7); POTASSIUM 5.7 mmol/L (3.5-4.5); TOTAL PROTEIN 6.4 gm/dL (6.2-8.1)
[2021-09-27 05:31] LABS: CREATININE, serum 4.63 mg/dL (0.57-1.11)
[2021-09-27 05:45] LABS: BAND 19 % (0-10); LYMPHOCYTE 2 % (20.0-51.0); METAMYELOCYTE 3 % (0-0); NEUTROPHILS 73 % (42.0-75.2); NUCLEATED RED BLOOD CELL 6 (0-6)
[2021-09-27 05:46] LABS: ANISOCYTOSIS 1+; HYPOCHROMIA 1+
--- NOTE | 2021-09-27 05:48 | NUR ---
PT INTUBATED LESS THAN 24 HOURS AGO. NO SEDATION VACATION PERFORMED AT THIS TIME.
--- NOTE | 2021-09-27 06:47 | NUR ---
Due to numerous phone calls from several family members throughout shift, this RN discussed benefits of a designated contact with the patient's and DPOA, Dima. Dima agrees to being patient's sole contact for information regarding updates and status changes. Other family members will be asked to contact Dima for further information.
--- NOTE | 2021-09-27 06:47 | NUR ---
Patient's and DPOA, Dima, updated. No further questions at this time.
[2021-09-27 12:16] LABS: ARTERIAL BLD GAS O2 SATURATION 91.1 % (92-100); ARTERIAL BLD GAS TCO2 CT 19.8; ARTERIAL BLOOD GAS HCO3 18.6 meq/L (22-26); ARTERIAL BLOOD GAS PCO2 37.8 mmHg (35-45); ARTERIAL BLOOD GAS PO2 65.2 mmHg (80-100); ARTERIAL BLOOD GAS pH 7.31 (7.35-7.45)
--- NOTE | 2021-09-27 14:00 | NUR ---
PATIENT HAD NON-TUNNELED DIALYSIS CATH PUT IN THIS AFTERNOON BY DR. LORENZ. CATHETER WAS PLACED IN THE LEFT FEMORAL ARTERY AND PATIENT TOLERATED PROCEDURE WELL. DR. LORENZ GAVE THE GO-AHEAD TO USE THE PORT FOR PLANNED DIALYSIS THIS AFTERNOON. TIMEOUT BEFORE THE PROCEDURE WAS PERFORMED AT 1247.
--- NOTE | 2021-09-27 14:55 | NUR ---
Lab calls this RN with critical Hep XA. This value was communicated with TRAVIS Sky at this time as well since she is the patient's primary nurse.
[2021-09-27 17:38] LABS: HEPATITIS B SURFACE ANTIBODY <2.0 (()); HEPATITIS B SURFACE ANTIGEN Negative (Negative); HEPATITIS C VIRUS ANTIBODY Negative (Negative)
--- NOTE | 2021-09-27 18:53 | NUR ---
SEDATION VACATION NOT PERFORMED THIS AFTERNOON PATIENT HAD DIALYSIS CATHETER INSERTED AND WAS ALSO BREATHING OVER THE VENT; PER DR. SERRANO SEDATION WAS TO BE INCREASED TO HELP O2 SATURATION WHICH HAD BEEN IN THE LOW 80S.
[2021-09-28] VITALS (1345 sets, daily range): BP systolic 77–148; BP diastolic 49–72; PULSE 88–133; TEMP 98.8–100.3; O2SAT 75–92
[2021-09-28 02:17] LABS: ARTERIAL BLD GAS O2 SATURATION 86.6 % (92-100); ARTERIAL BLD GAS TCO2 CT 19.1; ARTERIAL BLOOD GAS BASE EXCESS -8.1 (-2-2); ARTERIAL BLOOD GAS HCO3 17.9 meq/L (22-26); ARTERIAL BLOOD GAS PCO2 38.3 mmHg (35-45); ARTERIAL BLOOD GAS PO2 54.8 mmHg (80-100); ARTERIAL BLOOD GAS pH 7.29 (7.35-7.45)
--- NOTE | 2021-09-28 03:30 | NUR ---
Patient experienced episode of coughing at approximately 2230. Patient noted to be satting 90% prior to episode. Following episode, patient desatted breifly to 79%, however, she took several minutes to recover to a saturation of 86%. Patient suctioned and oral cares performed. Patient's saturations did not improve above 86%, and instead, they gradually worsened. At 0100, patient's vent began alarming 'high tidal volume,' and a low-pitched whistling was noted from patient's ET cuff. Oxygen saturations now 83% and trending down. , Anushka, notified, who voiced concern of a possible pneumo after assessing the patient. Holly, hospitalist, notified. Received orders for STAT chest xray. Patient's sats decreased to 79-80% without improvement over approximately 60 minutes. Holly consulted IRINA, who did not have further recommendations. Proning patient discussed. Patient's and DPOA, Dima, contacted at [phone] to discuss risks/benefits of proning. Radharaisa ultimately stated that if necessary, he and family would like to attempt proning. After lengthy discussion with family, patient's sats began improving. At this time, 0347, patient is supine and satting 90%, receiving a PEEP of 20, at a rate of 20, 100% FiO2, with a tidal volume of 500. She remains on propofol, fentanyl, cardizem, heparin, and levophed drips. No plan to prone at this time.
[2021-09-28 05:37] LABS: HEMOGLOBIN 11.6 g/dl (12.5-16.0); MEAN CELL VOLUME 85 fl (80.0-100.0); MEAN CORPUSCULAR HEMOGLOBIN 27 pg (27.0-31.0); MEAN CORPUSCULAR HGB CONC 32 g/dl (33.0-37.0); MEAN PLATELET VOLUME 9.9 fl (7.4-10.4); PLATELET COUNT 204 K/mm3 (130-400)
[2021-09-28 05:49] LABS: ALBUMIN 2.2 gm/dL (3.5-5.0); BILIRUBIN,TOTAL 0.4 mg/dL (0.2-1.2); CALCIUM 7.9 mg/dL (8.4-10.2); MAGNESIUM 1.7 mg/dL (1.6-2.6); POTASSIUM 5.5 mmol/L (3.5-4.5); TOTAL PROTEIN 5.5 gm/dL (6.2-8.1)
[2021-09-28 05:53] LABS: HEMATOCRIT 36.4 % (37.0-47.0)
[2021-09-28 05:54] LABS: CREATININE, serum 4.31 mg/dL (0.57-1.11)
[2021-09-28 06:42] LABS: ANISOCYTOSIS 1+; BAND 1 % (0-10); LYMPHOCYTE 5 % (20.0-51.0); NEUTROPHILS 90 % (42.0-75.2); PLATELET ESTIMATE NORMAL (NORMAL); POIKILOCYTOSIS 1+
--- NOTE | 2021-09-28 11:30 | NUR ---
PATIENT DID NOT TOLERATE DIALYSIS TODAY; PER MARCIA CABEZAS, DIALYSIS WAS STOPPED, PRESSURES DROPPED, O2 SAT DROPPED, AND HEART RATE INCREASED WHEN PATIENT WAS BEING DIALYZED. STARTED PATIENT BACK ON VASOPRESSIN AT THE 0.04 UNITS/MIN DOSE, AND INCREASED SEDATION MEDS ALONG WITH LEVOPHED. PER DR. SERRANO WE ALSO GAVE VECURONIUM TO HELP PATIENT BETTER TOLERATE VENTILATOR SETTINGS.
--- NOTE | 2021-09-28 17:38 | NUR ---
PATIENT DID NOT GET A SEDATION VACATION TODAY, HER CONDITION WAS NOT STABLE ENOUGH TO TRY. WE ADDED VASOPRESSIN TO THE LEVOPHED THAT SHE WAS CURRENTLY ON, WELL VECERONIUM DUE TO HER VENT SETTINGS.
--- NOTE | 2021-09-28 18:30 | NUR ---
PATIENT CONDITION NOT IMPROVING WITH CHANGES MADE TODAY. O2 SAT WASN'T ABOVE 83 PERCENT ALL AFTERNOON, AND HEART RATE STEADILY ZARA THROUGHOUT THE DAY, GOING FROM 90S TO 110S. BLOOD PRESSURE STAYED ABOVE SET PARAMETERS, PRESSORS WERE TITRATED ACCORDINGLY. PATIENT'S WAS TOLD THAT TODAY WAS A ROUGH DAY AND THAT SHE WAS DOING WORSE THAN SHE WAS THIS MORNING.
--- NOTE | 2021-09-28 19:00 | NUR ---
Received report from TRAVIS Sky.
--- NOTE | 2021-09-28 20:09 | NUR ---
Patient's oxygen saturation sustaining at 81%. Patient requiring two pressors to maintain BPs. HR has remained elevated 120-130s. Dr. Mathis notified at this time. Discussed proning in addition to changes to the vent settings. Vent settings were relayed to RTIrena. Per Dr. Mathis, patient would not benefit from proning, and her prognosis is extremely poor. Patient's family updated on the above by this RN and hospitalist, Holly. Family wishes to pursue all cares at this time. Full code status is confirmed.
--- NOTE | 2021-09-28 23:00 | NUR ---
Patient requiring levophed at 0.9 mcg/kg/min and vasopressin to maintain pressures. Epinephrine drip at bedside, however, patient's HR is sustained in high 130s; drip will only be initiated if absoultely necessary to maintain SBP > 90 or a MAP > 65, per hospitalist, Holly. Patient's oxygen saturation is currently 78% and has maintained below 83% for several hours. RT, Holly, and Dr. Mathis all aware. No changes to plan of care. Family is updated at this time. and DPOA, Dima, decides to change patient code status to DNR. Holly notified.
[2021-09-29] VITALS (273 sets, daily range): BP systolic 62–82; BP diastolic 48–62; PULSE 102–138; TEMP 100–100.8; O2SAT 56–80
[2021-09-29 00:49] LABS: ARTERIAL BLD GAS O2 SATURATION 76.1 % (92-100); ARTERIAL BLD GAS TCO2 CT 16.9; ARTERIAL BLOOD GAS BASE EXCESS -15.3 (-2-2); ARTERIAL BLOOD GAS HCO3 15.2 meq/L (22-26); ARTERIAL BLOOD GAS PCO2 55.4 mmHg (35-45); ARTERIAL BLOOD GAS PO2 50.8 mmHg (80-100); ARTERIAL BLOOD GAS pH 7.06 (7.35-7.45)
--- NOTE | 2021-09-29 04:30 | NUR ---
Patient has been maxed on levophed, vasopressin, and epinephrine drips with little effect on blood pressures. BP at this time 40s/30s. Patient's oxygen saturation a sustained 62%. HR has decreased to 80-90s. Holly notified. IRINA physician, Dr. Green, consulted. Dr. Green and Holly in agreement nothing further can be done for patient; it is assumed she will pass very soon. Family to be notified and called in.
--- NOTE | 2021-09-29 04:43 | NUR ---
Time of declared at this time. Holly, hospitalist, and are at the bedside.
--- NOTE | 2021-09-29 05:30 | NUR ---
Dr. Ryan at bedside.
--- NOTE | 2021-09-29 05:40 | NUR ---
YOLANDA notified of TOD 09/29/21 @[id number]. Not a candidte for donation. # [phone].
--- NOTE | 2021-09-29 07:25 | NUR ---
Patient released to home at this time. All patient belongings sent home with family.
== END 2021-09-29 07:25 | disposition expired | DRG 208 ==
LOC: COL.ER 18:06 → ICU 19:44
PROVIDERS: Family Medicine; Internal Medicine; Internal Medicine Nephrology; Internal Medicine Pulmonary Disease; Internal Medicine Sleep Medicine; Nurse Practitioner; Nurse Practitioner Family; Student in an Organized Health Care Education/Training Program; ADMIT Internal Medicine
PROC: XW033E5 Introduction of Remdesivir Anti-infective into Peripheral Vein, Percutaneous Approach, New Technology Group 5 (ICD-10-PCS; 2021-09-15)
PROC: 5A09457 Assistance with Respiratory Ventilation, 24-96 Consecutive Hours, Continuous Positive Airway Pressure (ICD-10-PCS; 2021-09-25)
PROC: 5A1945Z Respiratory Ventilation, 24-96 Consecutive Hours (ICD-10-PCS; principal; 2021-09-27)
PROC: 0BH17EZ Insertion of Endotracheal Airway into Trachea, Via Natural or Artificial Opening (ICD-10-PCS; 2021-09-27)
PROC: 06HY33Z Insertion of Infusion Device into Lower Vein, Percutaneous Approach (ICD-10-PCS; 2021-09-27)
PROC: 5A1D70Z Performance of Urinary Filtration, Intermittent, Less than 6 Hours Per Day (ICD-10-PCS; 2021-09-27)
DX: U07.1 COVID-19 (principal); J96.01 Acute respiratory failure with hypoxia; J12.82 Pneumonia due to coronavirus disease 2019; A41.89 Other specified sepsis; N17.9 Acute kidney failure, unspecified; E87.2 Acidosis; E87.1 Hypo-osmolality and hyponatremia; Z68.43 Body mass index [BMI] 50.0-59.9, adult; G47.33 Obstructive sleep apnea (adult) (pediatric); Z66 Do not resuscitate; E66.01 Morbid (severe) obesity due to excess calories; I12.9 Hypertensive chronic kidney disease with stage 1 through stage 4 chronic kidney disease, or unspecified chronic kidney disease; N18.9 Chronic kidney disease, unspecified; E87.5 Hyperkalemia; E11.22 Type 2 diabetes mellitus with diabetic chronic kidney disease; E78.5 Hyperlipidemia, unspecified; K21.9 Gastro-esophageal reflux disease without esophagitis; J45.40 Moderate persistent asthma, uncomplicated; Z73.0 Burn-out
CPT/HCPCS: 99231-AI; 99232-AI; 99233-AI; 99239; A4314; A9284; C1751; C9113; J0171; J0330; J0692; J1100; J1170; J1644; J1815; J1940; J1956; J2704; J3010; J3370; J7030; J7050; J7060; J8540; Q0249